=== PATIENT | female | born 1960 | race Caucasian/White ===

== ENCOUNTER → 2023-08-09 | Outpatient (CLI) | payer OTHER ==
[2023-08-09 13:08] LABS: BASOPHILS ABSOLUTE AUTO 0.03 K/mm3 (0.00-0.23); BASOPHILS PERCENT AUTO 1 % (0-2); EOSINOPHILS ABSOLUTE AUTO 0.22 K/mm3 (0.00-0.68); EOSINOPHILS PERCENT AUTO 4 % (0-6); Hematocrit 44.3 % (33.0-51.0); Hemoglobin 14.6 g/dL (11.5-16.0); IMMATURE GRAN ABSOLUTE AUTO 0.01 K/mm3 (0.00-0.10); IMMATURE GRAN PERCENT AUTO 0 % (0-1); LYMPHOCYTES ABSOLUTE AUTO 1.63 K/mm3 (0.84-5.20); LYMPHOCYTES PERCENT AUTO 30 % (21-46); MONOCYTES ABSOLUTE AUTO 0.41 K/mm3 (0.16-1.47); MONOCYTES PERCENT AUTO 7 % (4-13); Mean Corpuscular HGB 29.7 pg (26.0-34.0); Mean Corpuscular Volume 90 fL (80-100); Mean Platelet Volume 9.5 fL (9.1-12.4); NEUTROPHILS ABSOLUTE AUTO 3.22 K/mm3 (1.96-9.15); NEUTROPHILS PERCENT AUTO 58 % (41-73); Platelet Count 222 K/mm3 (150-400); RDW Coefficient Variation 12.9 % (11.7-14.2); Red Blood Cell Count 4.91 M/mm3 (3.80-5.20); White Blood Cell Count 5.52 K/mm3 (4.00-11.30)
[2023-08-09 13:29] LABS: Bun/Creatinine Ratio 28.8 (12.0-20.0); Calcium, Blood 9.4 mg/dL (8.5-10.1); Creatinine, Blood 0.8 mg/dL (0.40-1.00); Potassium, Blood 4.7 mmol/L (3.5-5.5); Thyroid Stimulating Hormone 0.765 uIU/mL (0.360-4.800)
== END | disposition home or self-care (01) ==
LOC: LAB SHORT 13:05 → LAB 13:05
PROVIDERS: Physician Assistant Surgical
DX: R53.83 Other fatigue (principal)
CPT/HCPCS: 80048; 84443; 85025

== ENCOUNTER → 2023-09-27 | Outpatient (CLI) | payer OTHER ==
[2023-09-30 01:04] LABS: HSV 1 GLYCOPROTEIN G AB, IGG 0.49 IV (<=0.89); HSV 2 GLYCOPROTEIN G AB, IGG 18.4 IV (<=0.89)
== END ==
LOC: LAB 14:34 → LAB SHORT 14:34
PROVIDERS: Physician Assistant
DX: R21 Rash and other nonspecific skin eruption (principal)
CPT/HCPCS: 86694; 86695; 86696

== ENCOUNTER 2024-05-01 21:46 | Emergency (ER) | payer OTHER ==
[~2024-05-01] VITALS: Ht 157.5 cm; Wt 70.3 kg
[2024-05-01] MEDS ORDERED: Albuterol 2.5 MG/3 ML VIAL INH SCH (22:00)
[2024-05-01 22:43] LABS: BASOPHILS ABSOLUTE AUTO 0.02 K/mm3 (0.00-0.23); BASOPHILS PERCENT AUTO 0 % (0-2); EOSINOPHILS ABSOLUTE AUTO 0.13 K/mm3 (0.00-0.68); EOSINOPHILS PERCENT AUTO 2 % (0-6); Hematocrit 42.4 % (33.0-51.0); Hemoglobin 14.3 g/dL (11.5-16.0); IMMATURE GRAN ABSOLUTE AUTO 0.02 K/mm3 (0.00-0.10); IMMATURE GRAN PERCENT AUTO 0 % (0-1); LYMPHOCYTES ABSOLUTE AUTO 2.66 K/mm3 (0.84-5.20); LYMPHOCYTES PERCENT AUTO 36 % (21-46); MONOCYTES ABSOLUTE AUTO 0.52 K/mm3 (0.16-1.47); MONOCYTES PERCENT AUTO 7 % (4-13); Mean Corpuscular HGB 29.1 pg (26.0-34.0); Mean Corpuscular HGB Conc 33.7 g/dL (31.5-36.5); Mean Corpuscular Volume 86 fL (80-100); Mean Platelet Volume 8.9 fL (9.1-12.4); NEUTROPHILS ABSOLUTE AUTO 4.01 K/mm3 (1.96-9.15); NEUTROPHILS PERCENT AUTO 54 % (41-73); Platelet Count 322 K/mm3 (150-400); RDW Coefficient Variation 13.3 % (11.7-14.2); RDW Standard Deviation 41.6 fL (35.1-46.3); Red Blood Cell Count 4.91 M/mm3 (3.80-5.20); White Blood Cell Count 7.36 K/mm3 (4.00-11.30)
[2024-05-01 23:04] LABS: Albumin, Blood 4.2 g/dL (3.4-5.0); Albumin/Globulin Ratio 1.3 (0.8-1.8); Bilirubin, Total 0.3 mg/dL (0.1-1.0); Bun/Creatinine Ratio 31.7 (12.0-20.0); Calcium, Blood 9.7 mg/dL (8.5-10.1); Creatinine, Blood 0.73 mg/dL (0.40-1.00); Globulin, Blood 3.3 g/dL (2.2-4.0); Total Protein, Blood 7.5 g/dL (6.4-8.2)
[2024-05-01 23:23] LABS: Influenza A, PCR NEGATIVE (NEGATIVE); Influenza B, PCR NEGATIVE (NEGATIVE); Resp Syncytial Virus, PCR NEGATIVE (NEGATIVE); SARS-Cov-2 (COVID-19) PCR, MMC NEGATIVE (NEGATIVE)
[2024-05-02] MEDS ORDERED: Prednisone20 MG PO (00:05)
[2024-05-02] MEDS ORDERED: ALBU90OI INH (00:05)
[2024-05-02] MEDS ORDERED: Tessalon Perle100 MG PO (00:05)
== END 2024-05-02 00:51 | disposition home or self-care (01) ==
LOC: ER 21:46
PROVIDERS: Emergency Medicine
DX: R05.9 Cough, unspecified (principal); Z88.1 Allergy status to other antibiotic agents; Z88.8 Allergy status to other drugs, medicaments and biological substances
CPT/HCPCS: 0241U; 71045; 80053; 83605; 83880; 84484; 85025; 93005; 93010; 94644; 94664; 99284-25

== ENCOUNTER 2024-05-15 17:59 | Emergency (ER) | payer OTHER ==
[~2024-05-15] VITALS: Ht 162.6 cm; Wt 72.6 kg
[~2024-05-15 17:59] MED LIST: ALBU90OI INH; Prednisone20 MG PO; Tessalon Perle100 MG PO
== END 2024-05-15 22:01 | disposition home or self-care (01) ==
LOC: ER 17:59
DX: S92.345A Nondisplaced fracture of fourth metatarsal bone, left foot, initial encounter for closed fracture (principal); W18.42XA Slipping, tripping and stumbling without falling due to stepping into hole or opening, initial encounter; Z88.1 Allergy status to other antibiotic agents; Z88.8 Allergy status to other drugs, medicaments and biological substances; Z79.899 Other long term (current) drug therapy
CPT/HCPCS: 29515; 73630; 99283-25